=== PATIENT | male | born 1950 | race Two or more races ===

== ENCOUNTER 2024-12-06 15:18 | Emergency (ER) | payer OTHER, MEDICAID ==
[~2024-12-06] VITALS: Ht 154.9 cm; Wt 68.0 kg
--- NOTE | 2024-12-06 15:42 | ED.PDOC ---
History of Present Illness HPI Comments 74 y/o M, presents to the ED for CC of s/p dog bite. Patient states, that he was bit by his own dog to his left thigh/Knee. Patient complains, of current 3/10 pain to site. Patient relays, that his last tetanus shot was [id number] ago. No other symptoms or modifiers present at this time. vital signs were stable at arrival. Chief Complaint: Animal Bite Time Seen by MD: 15:30 Reviewed Notes: Nurses Notes, Medications, Allergies Allergies: Coded Allergies: NO KNOWN ALLERGIES (Unverified , 12/06/24) Information Source: Patient Mode of Arrival: Ambulatory Severity: Moderate Timing: Minutes Duration: Since onset Prehospital treatment: None Past Medical History PAST MEDICAL HISTORY: Denies Surgical History: Denies all surgeries Family History Family History: Unknown Social History Smoker: Non-Smoker Alcohol: Denies ETOH Use Drugs: Denies Drug Use Lives In: Home Constitutional: denies: chills, diaphoresis, fatigue, fever, malaise, sweats, weakness, others EENTM: denies: blurred vision, double vision, ear bleeding, ear discharge, ear drainage, ear pain, ear ringing, eye pain, eye redness, hearing loss, mouth pain, mouth swelling, nasal discharge, nose bleeding, nose congestion, nose pain, photophobia, tearing, throat pain, throat swelling, voice changes, others Respiratory: denies: cough, hemoptysis, orthopnea, SOB at rest, shortness of breath, SOB with excertion, stridor, wheezing, others Cardiovascular: denies: chest pain, dizzy spells, diaphoresis, Dyspnea on exertion, edema, irregular heart beat, left arm pain, lightheadedness, palpitations, PND, syncope, others Gastrointestinal: denies: abdomen distended, abdominal pain, blood streaked bowels, constipated, diarrhea, dysphagia, difficulty swallowing, hematemesis, melena, nausea, poor appetite, poor fluid intake, rectal bleeding, rectal pain, vomiting, others Genitourinary: denies: burning, dysuria, flank pain, frequency, hematuria, incontinence, penile discharge, penile sore, pain, testicle pain, testicle swelling, urgency, others Neurological: denies: dizziness, fainting, headache, left sided numbness, left sided weakness, numbness, paresthesia, pre-existing deficit, right sided numbness, right sided weakness, seizure, speech problems, tingling, tremors, weakness, others Musculoskeletal: reports: others (wound to left distal thigh /Knee); denies: back pain, gout, joint pain, joint swelling, muscle pain, muscle stiffness, neck pain Integumetry: denies: bruises, change in color, change in hair/nails, dryness, laceration, lesions, lumps, rash, wounds, others Allergic/Immunocompromised: denies: Difficulty Healing, Frequent Infections, Hives, Itching, others Hematologic/Lymphatic: denies: anemia, blood clots, easy bleeding, easy bruising, swollen glands, others Endocrine: denies: excessive hunger, excessive sweating, excessive thirst, excessive urination, flushing, intolerance to cold, intolerance to heat, unexplained weight gain, unexplained weight loss, others Psychiatric: denies: anxiety, bipolar disorder, depression, hopeless, panic disorder, schizophrenia, sleepless, suicidal, others All Other Systems: Reviewed and Negative Physical Exam General Appearance: Mild Distress ( moderate distress due to minimal pain at the injury site.), Normal HEENT: Normal ENT Inspection, Pharynx Normal, TMs Normal Neck: Full Range of Motion, Non-Tender, Normal, Normal Inspection Respiratory: Chest Non-Tender, Lungs Clear, No Accessory Muscle Use, No Respiratory Distress, Normal Breath Sounds Cardiovascular: No Edema, No JVD, No Murmur, No Gallop, Normal Peripheral Pulses, Regular Rate/Rhythm Breast Exam: Deferred Gastrointestinal: No Organomegaly, Non Tender, No Pulsatile Mass, Normal Bowel Sounds, Soft Genitalia: Deferred Pelvic: Deferred Rectal: Deferred Extremities: Other ( Lateral aspect of the left distal thigh/ knee reveals to raked teeth [place] that may have some mild tissue penetration. No active bleed. Very mild localized erythema without edema.) Neurologic: Alert, No Motor Deficits, Normal Affect, Normal Mood, No Sensory Deficits Cerebellar Function: Normal Reflexes: Normal Skin: Wounds ( See extremities for description of lateral left thigh /knee wound) Lymphatic: No Adenopathy Was a procedure done? Was a procedure done?: No Differential Dx Considerations may include: Dog bite X-Ray, Labs, Meds, VS Vital Signs Date Time Temp Pulse Resp B/P (MAP) Pulse Ox O2 Delivery O2 Flow Rate FiO2 12/06/24 15:27 98.1 66 18 136/73 (94) 99 98.1 X-Ray, Labs, Meds, VS Comment Advised patient no additional treatment was required today in the ED. patient will get him and a tetanus update. Advised patient utilize antibiotics as directed until completion as well as pain medication as needed. Time of 1ST Reevaluation: 15:54 Reevaluation 1ST: Improved Consultation: PCP Patient Education/Counseling: Diagnosis, Treatment Family Education/Counseling: Diagnosis, Treatment, No Family Present Departure 1 Departure Time of Disposition: 15:54 Impression: Primary Impression: Dog bite Disposition: 01 HOME / SELF CARE / HOMELESS Condition: Stable Additional Instructions: Advised patient utilize antibiotics as directed until completion. Additionally, patient utilize pain medication as needed. e-Prescriptions Ibuprofen (Ibuprofen) 600 Mg Tab 1 TAB PO Q6HP PRN, #20 TAB Prov: PETRA DIMAS PAC 12/06/24 Amoxicillin & Pot Clavulanate (AUGMENTIN TABLET) 875 Mg Tb 875 MG PO BID for 5 Days, #10 TAB Prov: PETRA DIMAS PAC 12/06/24 Discharged With: Self, Friend Critical Care Note Critical Care Time?: No Stability Stability form required: No Heart Score Heart Score: Heart Score Response (Comments) Value History N/A 0 EKG N/A 0 Age N/A 0 Risk Factors N/A 0 Troponin N/A 0 Total 0 I personally scribed for PETRA DIMAS PAC ([email or web address]) on 12/06/24 at 15:42. Electronically submitted by Bessie Gong ([email or web address]). PETRA DIMAS PAC Dec 06, 2024 15:42
[2024-12-06] MEDS ORDERED: AUG875T PO (15:56)
[2024-12-06] MEDS ORDERED: IBUP-1454 PO (15:56)
[2024-12-06 16:41] VITALS: BP 126/59; PULSE 59; RESP 17; TEMP 97.7; O2SAT 96
[2024-12-06] MEDS: TETANUS-DIPTH-ACEL PERTUSSIS 0.5ML SYR Tdap IM ONE (16:41)
== END 2024-12-06 16:50 | disposition home or self-care (01) ==
LOC: ER 15:18
DX: S71.152A Open bite, left thigh, initial encounter (principal); S81.052A Open bite, left knee, initial encounter; W54.0XXA Bitten by dog, initial encounter; Y93.89 Activity, other specified; Y92.89 Other specified places as the place of occurrence of the external cause; Y99.8 Other external cause status
CPT/HCPCS: 90471; 90715